=== PATIENT | female | born 1960 | race Caucasian/White ===

== ENCOUNTER 2017-10-01 10:14 | Inpatient (IN) | payer OTHER, BC ==
--- NOTE | 2017-10-01 10:30 | ER Document Report ---
ED Medical Screen (RME) - General Chief Complaint: Bloody Stools Stated Complaint: BLOOD IN STOOLS Time Seen by Provider: 10/01/17 10:22 TRAVEL OUTSIDE OF THE [place] IN LAST 30 DAYS: No - HPI Notes: 10/01/17 10:29 Lower abdominal pain bloody diarrhea ongoing for 2 days. The recent colonoscopy colonoscopy scheduled October 31 as routine no lightheadedness no dizziness no nausea no vomiting - Related Data Allergies/Adverse Reactions: No Known Allergies Allergy (Unverified 04/14/15 08:00) Past Medical History - Past Medical History Cardiac Medical History: Reports: Hx Hypertension Denies: Hx Coronary Artery Disease, Hx Heart Attack Pulmonary Medical History: Denies: Hx Asthma, Hx Bronchitis, Hx COPD, Hx Pneumonia Neurological Medical History: Denies: Hx Cerebrovascular Accident, Hx Seizures Musculoskeltal Medical History: Denies Hx Arthritis - Immunizations Hx Diphtheria, Pertussis, Tetanus Vaccination: Yes Review of Systems - Review of Systems Gastrointestinal: Other - Bloody diarrhea -: Yes All other systems reviewed and negative Physical Exam - Vital signs Vitals: Temp Pulse Resp BP Pulse Ox 98.5 F 65 16 156/91 H 98 10/01/17 10:18 10/01/17 10:18 10/01/17 10:18 10/01/17 10:18 10/01/17 10:18 - Respiratory Respiratory status: No respiratory distress Breath sounds: Normal Chest palpation: Normal Course - Vital Signs Vital signs: Temp Pulse Resp BP Pulse Ox 98.5 F 65 16 156/91 H 98 10/01/17 10:18 10/01/17 10:18 10/01/17 10:18 10/01/17 10:18 10/01/17 10:18 Doctor's Discharge - Discharge Referrals: VINICIO WOMACK [employer] [facility]ER [Primary Care Provider] - Follow up as needed
[2017-10-01] MEDS ORDERED: NORMAL SALINE 1000 ML 1,000 ML IV ONE (10:31)
[2017-10-01 10:59] LABS: ABSOLUTE EOSINOPHILS # (AUTO) 0.3 10^3/uL (0.0-0.6); ABSOLUTE LYMPHOCYTES (AUTO) 1.7 10^3/uL (0.5-4.7); ABSOLUTE MONOCYTES (AUTO) 0.7 10^3/uL (0.1-1.4); ABSOLUTE NEUT (AUTO) 7.2 10^3/uL (1.7-8.2); BASOPHILS % (AUTO) 0.3 % (0-2); EOSINOPHILS % (AUTO) 2.7 % (0-6); HEMATOCRIT 40.1 % (36.0-47.0); HEMOGLOBIN 13.8 g/dL (12.0-15.5); LYMPHOCYTES % (AUTO) 16.9 % (13-45); MEAN CORPUSCULAR HEMOGLOBIN 31.3 pg (27.0-33.4); MEAN CORPUSCULAR HGB CONC 34.3 g/dL (32.0-36.0); MEAN CORPUSCULAR VOLUME 91 fl (80-97); MONOCYTES % (AUTO) 6.7 % (3-13); PLATELET COUNT 325 10^3/uL (150-450); RED BLOOD COUNT 4.39 10^6/uL (3.72-5.28); RED CELL DISTRIBUTION WIDTH 12.2 % (11.5-14.0); SEGMENTED NEUTROPHILS % (AUTO) 73.4 % (42-78); TOTAL CELLS COUNTED % (AUTO) 100 %; WHITE BLOOD COUNT 9.8 10^3/uL (4.0-10.5)
[2017-10-01 11:08] LABS: INTERNATIONAL RATION (INR) 0.91; PROTHROMBIN TIME 12.8 SEC (11.4-15.4)
[2017-10-01 11:09] LABS: PARTIAL THROMBOPLASTIN TIME 27.4 SEC (23.5-35.8)
[2017-10-01 11:18] LABS: ALANINE AMINOTRANSFERASE 18 U/L (9-52); ALKALINE PHOSPHATASE 46 U/L (38-126); ANION GAP 11 (5-19); ASPARTATE AMINO TRANSFERASE 20 U/L (14-36); BILIRUBIN,DIRECT 0.2 mg/dL (0.0-0.4); BILIRUBIN,TOTAL 0.5 mg/dL (0.2-1.3); BLOOD UREA NITROGEN 7 mg/dL (7-20); CALCIUM 9.4 mg/dL (8.4-10.2); CARBON DIOXIDE 27 mmol/L (22-30); CHLORIDE 105 mmol/L (98-107); GLUCOSE 98 mg/dL (75-110); LIPASE 67.2 U/L (23-300); POTASSIUM 4.2 mmol/L (3.6-5.0); SODIUM 142.7 mmol/L (137-145); TOTAL PROTEIN 7.3 g/dL (6.3-8.2)
--- NOTE | 2017-10-01 11:43 | ER Document Report ---
ED General - General Chief Complaint: Bloody Stools Stated Complaint: BLOOD IN STOOLS Time Seen by Provider: 10/01/17 10:22 Notes: 57-year-old female presents emergency department with a chief complaint of bloody diarrhea. Patient states that she has been constipated for the past 2 weeks since starting weight watchers however on she ate some really rich food and started feeling gassy and developing lower abdominal pressure which then progressed to diarrhea. This continued as well as Tuesday and then this morning when she looked in the toilet she saw bloody diarrhea, states that it looked like. Blood where there was blood mixed with the stool. Denies tarry melanotic stool, states there is also blood on the tissue, denies it being bright red. Patient states she tried taking Kaopectate which did not make a difference. Had one episode of emesis last night and does not know if there was any blood. Also states that she had some sweats and chills right before having diarrhea but has not had any fevers. Last had a colonoscopy about 6 years ago where they remove one polyp, has a follow-up colonoscopy scheduled for October 31. Has never had rectal bleeding before. TRAVEL OUTSIDE OF THE [place] IN LAST 30 DAYS: No - Related Data Allergies/Adverse Reactions: No Known Allergies Allergy (Unverified 04/14/15 08:00) Past Medical History - General Information source: Patient - Social History Smoking Status: Never Smoker Chew tobacco use (# tins/day): No Frequency of alcohol use: Heavy - Admits daily drinking. Drug Abuse: None Family History: Reviewed & Not Pertinent Patient has suicidal ideation: No Patient has homicidal ideation: No - Past Medical History Cardiac Medical History: Reports: Hx Hypertension Denies: Hx Coronary Artery Disease, Hx Heart Attack Pulmonary Medical History: Denies: Hx Asthma, Hx Bronchitis, Hx COPD, Hx Pneumonia Neurological Medical History: Denies: Hx Cerebrovascular Accident, Hx Seizures Renal/ Medical History: Denies: Hx Peritoneal Dialysis Musculoskeletal Medical History: Denies Hx Arthritis Past Surgical History: Reports: Hx Gynecologic Surgery - D&C - Immunizations Hx Diphtheria, Pertussis, Tetanus Vaccination: Yes Hx Pneumococcal Vaccination: 12/12/13 Review of Systems - Review of Systems Constitutional: See HPI, Chills, Diaphoresis. denies: Fever EENT: No symptoms reported Gastrointestinal: See HPI -: Yes All other systems reviewed and negative Physical Exam - Vital signs Vitals: Temp Pulse Resp BP Pulse Ox 98.5 F 65 16 156/91 H 98 10/01/17 10:18 10/01/17 10:18 10/01/17 10:18 10/01/17 10:18 10/01/17 10:18 Interpretation: Hypertensive - Notes Notes: GENERAL: Alert, interacts well. No acute distress. HEAD: Normocephalic, atraumatic EYES: Pupils equal, round and reactive to light, extraocular movements intact. ENT: Oral mucosa moist, tongue midline. NECK: Full range of motion, supple, trachea midline. LUNGS: Clear to auscultation bilaterally, no wheezes, rales or rhonchi, no respiratory distress. HEART: Regular rate and rhythm, no murmurs, gallops, rubs. ABDOMEN: Soft, mild left lower quadrant and suprapubic tenderness to palpation, nondistended, bowel sounds present in all 4 quadrants. EXTREMITIES: Moves all 4 extremities spontaneously, no edema, radial and dorsalis pedis pulses 2/4 bilaterally. No cyanosis. NEUROLOGICAL: Alert and oriented x3, normal speech. RECTAL: Rectal examination does not reveal any fissures, there is one nonthrombosed external hemorrhoid, good sphincter tone, internal exam reveals dark red blood, no tenderness, no melena. PSYCH: Normal mood, normal affect. SKIN: Warm, Dry, normal turgor, no rashes or lesions noted. Course - Re-evaluation Re-evalutation: 10/01/17 13:20 CBC unremarkable, coags normal, CMP unremarkable, occult blood is positive, CT scan of the abdomen and pelvis shows long segment of bowel wall thickening and surrounding inflammatory change about the descending colon from the level of the splenic flexure to the descending sigmoid junction, some free fluid noted within the left pericolic gutter and the right pericolic gutter, the appendix is mildly enlarged with some subtle surrounding inflammatory change and there is a moderate amount of simple appearing fluid within the pelvis. Discussed clinical exam and findings with Dr. Crowe with the surgeon on-call who agrees to clinical examination points away from appendicitis and away from perforated intestines. Currently suspect diverticulitis, he recommends admission to medical service and he will consult. I discussed this with Dr. Saeed who agrees to admit the patient to her service, request telemetry care bed, agrees with initially treating for diverticulitis with Cipro and Flagyl but also recommends getting C. difficile studies. Discussed this with the patient who is agreeable to admission at this time. - Vital Signs Vital signs: Temp Pulse Resp BP Pulse Ox 98.5 F 65 16 156/91 H 98 10/01/17 10:18 10/01/17 10:18 10/01/17 10:18 10/01/17 10:18 10/01/17 10:18 - Laboratory Result Diagrams: 10/01/17 10:42 10/01/17 10:42 Discharge - Discharge Clinical Impression: Lower GI bleed, Colitis Condition: Fair Disposition: ADMITTED INPATIENT Admitting Provider: [facility] Unit Admitted: Telemetry Referrals: VINICIO WOMACK NP [Primary Care Provider] - Follow up as needed
--- NOTE | 2017-10-01 12:24 | RADIOLOGY REPORT (SQ) ---
EXAM DESCRIPTION: CT ABD/PELVIS WITH IV ONLY COMPLETED DATE/TIME: 10/01/2017 11:58 am REASON FOR STUDY: Bloody diarrhea lower abdominal pain COMPARISON: None. TECHNIQUE: CT scan of the abdomen and pelvis performed using helical scanning technique with dynamic intravenous contrast injection. No oral contrast. Images reviewed with lung, soft tissue, and bone windows. Reconstructed coronal and sagittal MPR images reviewed. Delayed images for evaluation of the urinary system also acquired. All images stored on PACS. All CT scanners at this facility use dose modulation, iterative reconstruction, and/or weight based d osing when appropriate to reduce radiation dose to as low as reasonably achievable (ALARA). [facility]: Dose Right [facility]: CareDose [facility]: Dose Right [facility]: Teradose 4D [facility]: DeciZium CONTRAST TYPE AND DOSE: contrast/concentration: Isovue 370.00 mg/ml; Total Contrast Delivered: 77.0 ml; Total Saline Delivered: 67.0 ml RENAL FUNCTION: GFR > 60. RADIATION DOSE: CT Rad equipment meets quality standard of care and radiation dose reduction techniq ues were employed. CTDIvol: 7.5 - 10.6 mGy. DLP: 894 mGy-cm.. LIMITATIONS: None. FINDINGS: LOWER CHEST: No significant findings. No nodules or infiltrates. LIVER: Normal size. No masses. No dilated ducts. SPLEEN: Normal size. No focal lesions. PANCREAS: No masses. No significant calcifications. No adjacent inflammation or peripancreatic fluid collections. Pancreatic duct not dilated. GALLBLADDER: No identified stones by CT criteria. No inflammatory changes to suggest cholecystitis. ADRENAL GLANDS: No significant masses or asymmetry. RIGHT KIDNEY AND URETER: No solid masses. No significant calcifications. No hydronephrosis or hyd roureter. LEFT KIDNEY AND URETER: No solid masses. There is a large cyst in the left kidney that measures 12 x 10 x 8 cm with some complexity and calcifications of the cyst septa. No hydronephrosis or hydrour eter. AORTA AND VESSELS: No aneurysm. No dissection. Renal arteries, SMA, celiac without stenosis. RETROPERITONEUM: No retroperitoneal adenopathy, hemorrhage or masses. BOWEL AND PERITONEAL CAVITY: There is long segment bowel wall thickening and surrounding inflammatory change about the descending colon from the level of the splenic flexure to the descending sigmoid ju nction. There is some free fluid noted within the left pericolic gutter as well as the right pericol ic gutter. Scattered diverticula are seen throughout the colon. APPENDIX: The appendix is mildly enlarged with some subtle surrounding inflammatory change. PELVIS: There is a moderate amount of simple appearing free fluid within the pelvis. ABDOMINAL WALL: No masses. No hernias. BONES: No significant or acute findings. OTHER: No other significant finding. IMPRESSION: 1. Given the long segment involvement of the left colon, this is most consistent with a colitis, infectious or inflammatory. While ischemic colitis is a possibility, it is not favored. 2. Mild enlargement of the appendix with some subtle surrounding inflammatory change. This may be s econdary to the intra-abdominal inflammatory change, however a developing acute appendicitis is not e ntirely excluded. 3. Large, complicated left renal cyst. No prior exams available for comparison. If this is a new f inding, urology consultation is recommended for further evaluation given the size and complexity of t he cyst. TECHNICAL DOCUMENTATION: JOB ID: [id number] Quality ID # [id number]: Final reports with documentation of one or more dose reduction techniques (e.g., Au tomated exposure control, adjustment of the mA and/or kV according to patient size, use of iterative reconstruction technique) 2010 [employer]- All Rights Reserved Reading location - IP/workstation name: [email or web address]
[2017-10-01] MEDS ORDERED: CIPROFLOXACIN 400 MG/D5W RTU 400 MG/200 ML RTUPB IV ONE (12:59)
[2017-10-01] MEDS ORDERED: METRONIDAZOLE 500 MG/NS RTU 500 MG/100 ML RTUPB IV SCH (13:30)
[2017-10-01] MEDS ORDERED: CHOLECALCIFEROL (D3) 1,000 UNIT TABLET PO SCH (13:30)
[2017-10-01] MEDS: METRONIDAZOLE 500 MG/NS RTU 500 MG/100 ML RTUPB IV SCH ×2 (13:57→21:23)
[2017-10-01] MEDS ORDERED: METRONIDAZOLE 500 MG/NS RTU 500 MG/100 ML RTUPB IV ONE (14:00)
[2017-10-01] MEDS ORDERED: LORAZEPAM 0.5 MG TABLET PO PRN (15:09)
--- NOTE | 2017-10-01 15:09 | PDOC H&P ---
History of Present Illness Admission Date/PCP: 10/01/17 13:58 VINICIO WOMACK NP Patient complains of: abd bloating and diarrhea with bright red blood per rectum History of Present Illness: GILMA CARABALLO is a 57 year old woman with a past medical history significant for colon polyp, acoustic neuroma, hypertension and hypothyroidism reports to the ER after experiencing abdominal symptoms. About 4 weeks ago she started on weight watchers diet plan and since that time she has been feeling a little bit more constipated than usual. She reports that 2 days ago she was celebrating her anniversary with her and they went out for dinner. She ate a large rich meal with scallops, shrimp and other seafood, nothing raw. She also ate coleslaw that day. Within an hour after eating the meal she experienced significant abdominal bloating. Shortly thereafter she had a large bout of emesis and throughout her entire meal. Diarrhea started at the same time. Tuesday morning she continued with diarrhea, no further emesis. This morning diarrhea continued and she notes that it was brown mucousy and soft with bright red blood. She does not know when the bleeding started. She took some Kaopectate, ate a brat diet and took Pedialyte. After some Internet research on blood in the stool she decided to come to the ER. She continues to have loose stools. No dysuria. No fevers or chills. She has left lower quadrant aching. No severe abdominal pain. No rash. No epigastric pain. No hematemesis or melena. CT can of the abdomen pelvis shows left colon inflammation consistent with colitis, also complex left renal cyst for which urology workup is recommended. Is being admitted to the hospitalist service for treatment of colitis, likely infectious though inflammatory and ischemic not completely ruled out. sHe is hemodynamically stable. 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 Endocrine Medical History: Reports: Hypothyroidism Renal/ Medical History: Denies: Chronic Kidney Disease Malignancy Medical History: Reports: None GI Medical History: Reports: Other - Diverticulosis Musculoskeltal Medical History: Reports: Arthritis - Osteoarthritis Skin Medical History: Denies: Eczema, Psoriasis Psychiatric Medical History: Reports: Other - Mild situational anxiety Denies: Alcohol Dependency, Substance Abuse, Tobacco Dependency Traumatic Medical History: Reports: None Hematology: Denies: Anemia, Bleeding Tendencies Infectious Medical History: Denies: Clostridium Difficile Past Surgical History Past Surgical History: Reports: Other - Craniotomy for acoustic neuroma Social History Information Source: Patient Lives with: Family Smoking Status: Former Smoker - Smoked in the 80s, never heavy Last Time Smoked: 1980s Amount of Alcoholic Beverages Per Day: 1 Hx Recreational Drug Use: No Drugs: None Hx Prescription Drug Abuse: No Past Social History Note: 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 She and her are from the [facility]. She has several healthy children. - Advance Directive Resuscitation Status: Full Code Surrogate healthcare decision maker:: Gurvinder Caraballo. Phone number [phone] Family History Parental Family History Reviewed: Yes - Father of an SC at 64, first SC at 45. mother of old age. Children Family History Reviewed: Yes - The children Sibling(s) Family History Reviewed.: Yes Medication/Allergy Home Medications: Levothyroxine Sodium 75 mcg PO Q6AM 04/14/15 Lisinopril 10 mg PO DAILY 04/14/15 Ergocalciferol (Vitamin D2) [Drisdol 50,000 Unit (1.25MG) Capsule] 50,000 unit PO .QWEEKLY 10/01/17 Estrogens,Conj/Bazedoxifene [Duavee 0.45-20 mg Tablet] 1 each PO DAILY 10/01/17 Allergies/Adverse Reactions: No Known Allergies Allergy (Unverified 04/14/15 08:00) Review of Systems Constitutional: PRESENT: anorexia, chills. ABSENT: fever(s), headache(s), weakness Eyes: ABSENT: visual disturbances Ears: PRESENT: other - Right ear deafness Nose, Mouth, and Throat: ABSENT: headache(s), mouth pain, sore throat Cardiovascular: ABSENT: chest pain, dyspnea on exertion, edema, palpitations Respiratory: ABSENT: cough, dyspnea, hemoptysis, sputum Gastrointestinal: PRESENT: abdominal pain, bloating, diarrhea, hematochezia, nausea, vomiting. ABSENT: coffee ground emesis, constipation, dysphagia, heartburn, hematemesis, melena Genitourinary: ABSENT: difficulty urinating, dysuria Musculoskeletal: ABSENT: back pain, joint swelling, muscle weakness Integumentary: ABSENT: lesions, wounds Neurological: PRESENT: other - left facial paralysis chronic. ABSENT: dizziness , lack of coordination, memory loss, numbness, paresthesias, weakness Psychiatric: PRESENT: anxiety. ABSENT: depression Endocrine: PRESENT: other - menopausal. ABSENT: cold intolerance, heat intolerance Hematologic/Lymphatic: ABSENT: easy bleeding, easy bruising Allergic/Immunologic: ABSENT: seasonal rhinorrhea Physical Exam Vital Signs: Temp Pulse Resp BP Pulse Ox 98.5 F 65 16 156/91 H 98 10/01/17 10:18 10/01/17 10:18 10/01/17 10:18 10/01/17 10:18 10/01/17 10:18 General appearance: PRESENT: no acute distress, cooperative, well-developed, well-nourished Head exam: PRESENT: atraumatic, normocephalic Eye exam: PRESENT: EOMI. ABSENT: conjunctival injection, periorbital swelling, scleral icterus Ear exam: PRESENT: normal external ear exam. ABSENT: bleeding Mouth exam: PRESENT: moist, neck supple, tongue midline Neck exam: ABSENT: lymphadenopathy, tenderness Respiratory exam: PRESENT: clear to auscultation faye, crackles, unlabored. ABSENT: accessory muscle use, chest wall tenderness, rales, rhonchi, wheezes Cardiovascular exam: PRESENT: RRR. ABSENT: diastolic murmur, systolic murmur Pulses: PRESENT: normal radial pulses, normal dorsalis pedis pul GI/Abdominal exam: PRESENT: soft, tenderness - Left lower quadrant tenderness to palpation without rebound or guarding. ABSENT: ascites, distended, firm, guarding, mass, normal bowel sounds Rectal exam: PRESENT: deferred Gentrourinary exam: ABSENT: indwelling catheter Extremities exam: ABSENT: clubbing, pedal edema Musculoskeletal exam: PRESENT: ambulatory, normal inspection Neurological exam: PRESENT: alert, awake, oriented to person, oriented to place , oriented to situation, CN II-XII grossly intact Psychiatric exam: PRESENT: anxious, appropriate affect Skin exam: PRESENT: dry, intact, warm Results Impressions: Abdomen/Pelvis CT 07/21/18 10:30 IMPRESSION: 1. Given the long segment involvement of the left colon, this is most consistent with a colitis, infectious or inflammatory. While ischemic colitis is a possibility, it is not favored. 2. Mild enlargement of the appendix with some subtle surrounding inflammatory change. This may be secondary to the intra-abdominal inflammatory change, however a developing acute appendicitis is not entirely excluded. 3. Large, complicated left renal cyst. No prior exams available for comparison. If this is a new finding, urology consultation is recommended for further evaluation given the size and complexity of the cyst. Assessment & Plan - Diagnosis (1) Colitis Is this a current diagnosis for this admission?: Yes Plan: Patient came in with blood in her stool, she has been having diarrhea for several days after eating seafood and coleslaw. She also has diverticulosis seen on CT scan. The differential is ischemic versus inflammatory versus infectious colitis. Ischemic less likely, I think most likely infectious. She will be treated at this point with Cipro 400 mg IV every 12 hours and Flagyl 500 mg every 8 hours. Ice chips only for bowel rest. Maintenance IV fluids with normal saline. Stool culture, C. difficile, fecal occult blood tests all pending. Fecal white blood cells pending as well. Is hemodynamically stable. (2) Nausea vomiting and diarrhea Is this a current diagnosis for this admission?: Yes Plan: Patient reports that for about 4 weeks she has been on weight watchers. She was feeling somewhat constipated. 2 days ago while on her anniversary dinner she had a very rich meal which included seafood, nothing raw, this included oysters and shrimp and scallops. Very quickly after eating within an hour she felt bloated and then diarrhea started. She had one episode of emesis which throughout her meal. After that she had diarrhea for about 2 days and she finally noticed blood in the stool and so came into the ER. She now is found to have colitis. She is being treated for infectious colitis and multiple studies are pending. Nausea and vomiting have resolved. She will be hydrated with IV fluids while she is on bowel rest and still having some diarrhea. (3) Hypothyroidism Is this a current diagnosis for this admission?: Yes Plan: We will start her Synthroid (4) Hypertension Is this a current diagnosis for this admission?: Yes Plan: As long as patient is not hypotensive she will take her regular home antihypertensives. (5) Colon polyp Is this a current diagnosis for this admission?: Yes Plan: Patient had screening colonoscopy 5 years ago and colon polyp was removed. She is due for repeat colonoscopy within the next week or so. Of note she is also up-to-date on her mammogram. (6) Anxiety Is this a current diagnosis for this admission?: Yes Plan: Patient is on BuSpar at home. We will restart this. She is feeling anxious about this medical problem and her admission, she also has some insomnia. I will write for Ativan 0.5 mg p.o. every 8 hours as needed anxiety or in some area. (7) DVT prophylaxis Is this a current diagnosis for this admission?: Yes Plan: Contraindicated secondary to lower GI bleed. SCDs have been ordered. Ambulation with assistance will be encouraged. - Time Time Spent: 50 to 70 Minutes Medications reviewed and adjusted accordingly: Yes Anticipated discharge: Home - Inpatient Certification Based on my medical assessment, after consideration of the patient's comorbidities, presenting symptoms, or acuity I expect that the services needed warrant INPATIENT care.: Yes I certify that my determination is in accordance with my understanding of Medicare's requirements for reasonable and necessary INPATIENT services [42 CFR 412.3e].: Yes Medical Necessity: Need For IV Fluids, Need for IV Antibiotics, Risk of Complication if Not Cared For in Hospital
[2017-10-01 15:59] LABS: INTERNATIONAL RATION (INR) 0.95; PROTHROMBIN TIME 13.2 SEC (11.4-15.4)
[2017-10-01 17:07] LABS: URINE AMPHETAMINES SCREEN NEGATIVE; URINE BARBITURATES SCREEN NEGATIVE; URINE BENZODIAZEPINES SCREEN NEGATIVE; URINE COCAINE SCREEN NEGATIVE; URINE MARIJUANA (THC) SCREEN NEGATIVE; URINE METHADONE SCREEN NEGATIVE; URINE PHENCYCLIDINE SCREEN NEGATIVE
[2017-10-01] MEDS ORDERED: IBUPROFEN 600 MG TABLET PO PRN (18:21)
[2017-10-01] MEDS: CIPROFLOXACIN 400 MG/D5W RTU 400 MG/200 ML RTUPB IV SCH (21:23)
[2017-10-01] MEDS: ACETAMINOPHEN 325 MG TABLET PO PRN (23:32)
[2017-10-02] MEDS: METRONIDAZOLE 500 MG/NS RTU 500 MG/100 ML RTUPB IV SCH ×3 (05:17→21:58)
[2017-10-02] MEDS: ACETAMINOPHEN 325 MG TABLET PO PRN ×3 (05:18→21:58)
[2017-10-02 06:03] LABS: HEMATOCRIT 32.8 % (36.0-47.0); MEAN CORPUSCULAR HEMOGLOBIN 31.6 pg (27.0-33.4); MEAN CORPUSCULAR HGB CONC 34.7 g/dL (32.0-36.0); MEAN CORPUSCULAR VOLUME 91 fl (80-97); PLATELET COUNT 233 10^3/uL (150-450); RED CELL DISTRIBUTION WIDTH 12.3 % (11.5-14.0); WHITE BLOOD COUNT 8.2 10^3/uL (4.0-10.5)
[2017-10-02 06:11] LABS: ANION GAP 10 (5-19); BLOOD UREA NITROGEN 8 mg/dL (7-20); CALCIUM 8.4 mg/dL (8.4-10.2); CARBON DIOXIDE 21 mmol/L (22-30); CHLORIDE 110 mmol/L (98-107); GLUCOSE 74 mg/dL (75-110); POTASSIUM 3.7 mmol/L (3.6-5.0); SODIUM 141.1 mmol/L (137-145)
[2017-10-02 06:40] LABS: HEMOGLOBIN 11.4 g/dL (12.0-15.5)
[2017-10-02] MEDS: LEVOTHYROXINE SODIUM 0.075 MG TABLET PO SCH (09:48)
[2017-10-02] MEDS: CIPROFLOXACIN 400 MG/D5W RTU 400 MG/200 ML RTUPB IV SCH ×2 (09:48→21:58)
[2017-10-02] MEDS: LACTOBACILLUS ACIDOPHILUS 250 MG TAB PO SCH (09:48)
[2017-10-02] MEDS: LISINOPRIL 10 MG TABLET PO SCH (09:49)
[2017-10-02] MEDS ORDERED: LACTOBACILLUS COMBINATION NO 4 PO SCH (10:00)
[2017-10-02] MEDS ORDERED: [UNRECOGNIZED DRUG - OTHER] PO SCH (10:00)
[2017-10-02] MEDS: NORMAL SALINE 1000 ML 1,000 ML IV PRN ×2 (13:24→21:58)
--- NOTE | 2017-10-02 15:41 | PDOC PROGRESS REPORT ---
Subjective Progress Note for:: 10/02/17 Subjective:: Patient had a large bowel movement that had brown mucousy soft stools with lots of blood in it last night. Since then no further stools. No chest pain or difficulty breathing. No real abdominal discomfort at this point. No dysuria. She is doing fine with ice chips. Ice chips do not abdominal pain. She is feeling some anxiety. She states that the half milligram of Ativan tab was not strong enough to have an effect. Reason For Visit: COLITIS AND LOWER GI BLEED Physical Exam Vital Signs: Temp Pulse Resp BP Pulse Ox 98.2 F 57 L 16 127/72 H 99 10/02/17 12:00 10/02/17 14:00 10/02/17 12:00 10/02/17 12:00 10/02/17 12:00 Intake & Output 10/01/17 10/02/17 10/03/17 06:59 06:59 06:59 Intake Total 1750 Balance 1750 Weight 73.8 kg General appearance: PRESENT: no acute distress, cooperative, well-developed, well-nourished Eye exam: ABSENT: conjunctival injection, scleral icterus Ear exam: PRESENT: normal external ear exam Mouth exam: PRESENT: moist, tongue midline Respiratory exam: PRESENT: clear to auscultation faye, unlabored. ABSENT: rales , rhonchi, wheezes Cardiovascular exam: PRESENT: RRR. ABSENT: diastolic murmur, systolic murmur Pulses: PRESENT: normal radial pulses GI/Abdominal exam: PRESENT: normal bowel sounds, soft. ABSENT: firm, guarding, tenderness Rectal exam: PRESENT: bloody stool Gentrourinary exam: ABSENT: indwelling catheter Extremities exam: ABSENT: pedal edema, +1 edema Musculoskeletal exam: PRESENT: normal inspection Neurological exam: PRESENT: alert, awake, oriented to person, oriented to place , oriented to situation, CN II-XII grossly intact Psychiatric exam: PRESENT: appropriate affect. ABSENT: anxious Skin exam: PRESENT: dry, intact, warm Results Laboratory Results: 10/02/17 04:33 10/02/17 04:33 10/01/17 10/02/17 10/02/17 16:10 04:33 04:33 WBC 8.2 RBC 3.60 L Hgb 11.4 L D Hct 32.8 L MCV 91 MCH 31.6 MCHC 34.7 RDW 12.3 Plt Count 233 Sodium 141.1 Potassium 3.7 Chloride 110 H Carbon Dioxide 21 L Anion Gap 10 BUN 8 Creatinine 0.64 Est GFR ( Amer) > 60 Est GFR (Non-Af Amer) > 60 Glucose 74 L Calcium 8.4 Stool for White Cells NO WBCs SEEN Impressions: Abdomen/Pelvis CT 10/01/17 10:30 IMPRESSION: 1. Given the long segment involvement of the left colon, this is most consistent with a colitis, infectious or inflammatory. While ischemic colitis is a possibility, it is not favored. 2. Mild enlargement of the appendix with some subtle surrounding inflammatory change. This may be secondary to the intra-abdominal inflammatory change, however a developing acute appendicitis is not entirely excluded. 3. Large, complicated left renal cyst. No prior exams available for comparison. If this is a new finding, urology consultation is recommended for further evaluation given the size and complexity of the cyst. Assessment & Plan - Diagnosis (1) Colitis Is this a current diagnosis for this admission?: Yes Plan: Infectious versus ischemic versus inflammatory, infectious favored. Will continue IV Cipro and Flagyl and continue bowel rest with small amounts of ice chips. Pain is improving. Stool culture pending. C. difficile negative. Fecal occult blood test positive. Fecal white blood cells pending. Patient did drop her hemoglobin a few points overnight. No further bloody stools after last night but will follow her hemoglobin again today. 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 (2) Nausea vomiting and diarrhea Is this a current diagnosis for this admission?: Yes Plan: Nausea vomiting resolved. Bloody diarrhea last night. All likely related to whatever is causing the colitis. Will monitor. (3) Hypothyroidism Is this a current diagnosis for this admission?: Yes Plan: Continue her Synthroid. Seems stable clinically from this perspective. (4) Hypertension Is this a current diagnosis for this admission?: Yes Plan: Patient's lisinopril restarted. sHe is normotensive today. We will continue to monitor blood pressure. (5) Colon polyp Is this a current diagnosis for this admission?: Yes Plan: Several years ago. Repeat colonoscopy pending. Please see colitis above. (6) Anxiety Is this a current diagnosis for this admission?: Yes Plan: Patient has baseline anxiety. She is more anxious being in the hospital. Half milligram of Ativan was not effective. I have increased her dose to 1 mg p.o. every 8 hours as needed anxiety. Will monitor progress. (7) DVT prophylaxis Is this a current diagnosis for this admission?: Yes Plan: SCDs only secondary to bleeding. - Time Time Spent with patient: 25-34 minutes Medications reviewed and adjusted accordingly: Yes - Inpatient Certification Based on my medical assessment, after consideration of the patient's comorbidities, presenting symptoms, or acuity I expect that the services needed warrant INPATIENT care.: Yes I certify that my determination is in accordance with my understanding of Medicare's requirements for reasonable and necessary INPATIENT services [42 CFR 412.3e].: Yes Medical Necessity: Need Close Monitoring Due to Risk of Patient Decompensation, Need For IV Fluids, Risk of Complication if Not Cared For in Hospital
[2017-10-02 17:04] LABS: HEMATOCRIT 34.3 % (36.0-47.0); HEMOGLOBIN 11.8 g/dL (12.0-15.5); MEAN CORPUSCULAR HEMOGLOBIN 31.2 pg (27.0-33.4); MEAN CORPUSCULAR HGB CONC 34.3 g/dL (32.0-36.0); MEAN CORPUSCULAR VOLUME 91 fl (80-97); PLATELET COUNT 262 10^3/uL (150-450); RED BLOOD COUNT 3.78 10^6/uL (3.72-5.28); RED CELL DISTRIBUTION WIDTH 12.2 % (11.5-14.0); WHITE BLOOD COUNT 8.8 10^3/uL (4.0-10.5)
[2017-10-02] MEDS: LORAZEPAM 0.5 MG TABLET PO PRN (17:48)
[2017-10-03] MEDS: METRONIDAZOLE 500 MG/NS RTU 500 MG/100 ML RTUPB IV SCH ×3 (05:06→21:13)
[2017-10-03] MEDS: ACETAMINOPHEN 325 MG TABLET PO PRN ×3 (05:11→22:47)
[2017-10-03 06:40] LABS: HEMATOCRIT 34.3 % (36.0-47.0); HEMOGLOBIN 11.8 g/dL (12.0-15.5); MEAN CORPUSCULAR HEMOGLOBIN 31.5 pg (27.0-33.4); MEAN CORPUSCULAR HGB CONC 34.4 g/dL (32.0-36.0); MEAN CORPUSCULAR VOLUME 92 fl (80-97); PLATELET COUNT 266 10^3/uL (150-450); RED BLOOD COUNT 3.74 10^6/uL (3.72-5.28); WHITE BLOOD COUNT 7.9 10^3/uL (4.0-10.5)
[2017-10-03 07:15] LABS: ANION GAP 15 (5-19); BLOOD UREA NITROGEN 8 mg/dL (7-20); CALCIUM 8.4 mg/dL (8.4-10.2); CARBON DIOXIDE 16 mmol/L (22-30); CHLORIDE 110 mmol/L (98-107); GLUCOSE 47 mg/dL (75-110); POTASSIUM 3.9 mmol/L (3.6-5.0); SODIUM 140.6 mmol/L (137-145)
[2017-10-03] MEDS: LACTOBACILLUS ACIDOPHILUS 250 MG TAB PO SCH (09:30)
[2017-10-03] MEDS: LEVOTHYROXINE SODIUM 0.075 MG TABLET PO SCH (09:30)
[2017-10-03] MEDS: LISINOPRIL 10 MG TABLET PO SCH (09:30)
[2017-10-03] MEDS: CIPROFLOXACIN 400 MG/D5W RTU 400 MG/200 ML RTUPB IV SCH ×2 (09:31→22:47)
[2017-10-03] MEDS: NORMAL SALINE 1000 ML 1,000 ML IV PRN ×2 (09:38→21:13)
--- NOTE | 2017-10-03 19:14 | PDOC PROGRESS REPORT ---
Subjective Progress Note for:: 10/03/17 Subjective:: Still with abdominal pain, but improved. Tolerating clear liquid diet. Would like trial of advancing diet. No further rectal bleeding at this time. No chest pain or shortness of breath or palpitations, denies dizziness, no nausea vomiting. Reason For Visit: COLITIS AND LOWER GI BLEED Physical Exam Vital Signs: Temp Pulse Resp BP Pulse Ox 98.2 F 104 H 16 127/68 H 97 10/03/17 15:13 10/03/17 15:13 10/03/17 15:13 10/03/17 15:13 10/03/17 15:13 Intake & Output 10/02/17 10/03/17 10/04/17 06:59 06:59 06:59 Intake Total 1750 3525 593 Output Total 2 Balance 1750 3523 593 Weight 73.8 kg 76.249 kg General appearance: PRESENT: no acute distress, cooperative, well-developed, well-nourished Eye exam: ABSENT: conjunctival injection, scleral icterus Ear exam: PRESENT: normal external ear exam Mouth exam: PRESENT: moist, tongue midline Respiratory exam: PRESENT: clear to auscultation faye, unlabored. ABSENT: rales , rhonchi, wheezes Cardiovascular exam: PRESENT: RRR. ABSENT: diastolic murmur, systolic murmur Pulses: PRESENT: normal radial pulses GI/Abdominal exam: PRESENT: normal bowel sounds, soft, mild to moderate left lower quadrant tenderness. ABSENT: firm, guarding, tenderness Rectal exam: PRESENT: bloody stool Gentrourinary exam: ABSENT: indwelling catheter Extremities exam: ABSENT: pedal edema, +1 edema Musculoskeletal exam: PRESENT: normal inspection Neurological exam: PRESENT: alert, awake, oriented to person, oriented to place , oriented to situation, CN II-XII grossly intact Psychiatric exam: PRESENT: appropriate affect. ABSENT: anxious Skin exam: PRESENT: dry, intact, warm Results Laboratory Results: 10/03/17 05:53 10/03/17 05:53 10/03/17 10/03/17 05:53 05:53 WBC 7.9 RBC 3.74 Hgb 11.8 L Hct 34.3 L MCV 92 MCH 31.5 MCHC 34.4 RDW 12.0 Plt Count 266 Sodium 140.6 Potassium 3.9 Chloride 110 H Carbon Dioxide 16 L Anion Gap 15 BUN 8 Creatinine 0.64 Est GFR ( Amer) > 60 Est GFR (Non-Af Amer) > 60 Glucose 47 L Calcium 8.4 Impressions: Abdomen/Pelvis CT 10/01/17 10:30 IMPRESSION: 1. Given the long segment involvement of the left colon, this is most consistent with a colitis, infectious or inflammatory. While ischemic colitis is a possibility, it is not favored. 2. Mild enlargement of the appendix with some subtle surrounding inflammatory change. This may be secondary to the intra-abdominal inflammatory change, however a developing acute appendicitis is not entirely excluded. 3. Large, complicated left renal cyst. No prior exams available for comparison. If this is a new finding, urology consultation is recommended for further evaluation given the size and complexity of the cyst. Assessment & Plan - Plan Summary Plan Summary: (1) Colitis Is this a current diagnosis for this admission?: Yes Plan: Infectious versus ischemic versus inflammatory; infectious favored. Will continue IV Cipro and Flagyl for now. Pain is improving. Stool culture pending. C. difficile negative. Fecal occult blood test positive. She had colonoscopy about 7 years ago. Will need GI follow-up. Trial of advancing diet. (2) Nausea vomiting and diarrhea Is this a current diagnosis for this admission?: Yes Plan: Nausea and vomiting resolved. No more bloody diarrhea at this time. Will monitor. (3) Hypothyroidism Is this a current diagnosis for this admission?: Yes Plan: Continue her Synthroid. Seems stable clinically from this perspective. (4) Hypertension Is this a current diagnosis for this admission?: Yes Plan: BP stable. We will continue to monitor blood pressure. (5) Colon polyp Is this a current diagnosis for this admission?: Yes Plan: Several years ago. 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 Please see colitis above. (6) Anxiety Is this a current diagnosis for this admission?: Yes Plan: Patient has baseline anxiety. She is more anxious being in the hospital. Continue as needed Ativan. Will monitor progress. (7) DVT prophylaxis Is this a current diagnosis for this admission?: Yes Plan: SCDs only secondary to bleeding. (8) Large Complicated left renal cyst Is this a current diagnosis for this admission?: Yes Plan: Urology consult Dr. Kadeem mosqueda--he will see patient in a.m.
[2017-10-03] MEDS: LORAZEPAM 0.5 MG TABLET PO PRN (21:13)
[2017-10-04 05:26] LABS: HEMATOCRIT 32.3 % (36.0-47.0); HEMOGLOBIN 11.5 g/dL (12.0-15.5); MEAN CORPUSCULAR HEMOGLOBIN 31.8 pg (27.0-33.4); MEAN CORPUSCULAR HGB CONC 35.4 g/dL (32.0-36.0); MEAN CORPUSCULAR VOLUME 90 fl (80-97); PLATELET COUNT 273 10^3/uL (150-450); RED CELL DISTRIBUTION WIDTH 12.2 % (11.5-14.0)
[2017-10-04] MEDS: METRONIDAZOLE 500 MG/NS RTU 500 MG/100 ML RTUPB IV SCH ×3 (05:26→21:09)
[2017-10-04 05:49] LABS: ANION GAP 9 (5-19); BLOOD UREA NITROGEN 8 mg/dL (7-20); CALCIUM 8.5 mg/dL (8.4-10.2); CARBON DIOXIDE 21 mmol/L (22-30); CHLORIDE 112 mmol/L (98-107); GLUCOSE 92 mg/dL (75-110); POTASSIUM 3.8 mmol/L (3.6-5.0); SODIUM 141.6 mmol/L (137-145)
[2017-10-04] MEDS: LACTOBACILLUS ACIDOPHILUS 250 MG TAB PO SCH (09:00)
[2017-10-04] MEDS: LEVOTHYROXINE SODIUM 0.075 MG TABLET PO SCH (09:00)
[2017-10-04] MEDS: LISINOPRIL 10 MG TABLET PO SCH (09:01)
[2017-10-04] MEDS: CIPROFLOXACIN 400 MG/D5W RTU 400 MG/200 ML RTUPB IV SCH ×2 (09:02→21:09)
[2017-10-04] MEDS: LORAZEPAM 0.5 MG TABLET PO PRN ×2 (10:28→21:10)
[2017-10-04] MEDS: ACETAMINOPHEN 325 MG TABLET PO PRN ×2 (10:28→21:11)
--- NOTE | 2017-10-04 11:21 | PDOC CONSULTATION ---
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 Neurological Medical History: Denies: Seizures Endocrine Medical History: Reports: Hypothyroidism Renal/ Medical History: Denies: Chronic Kidney Disease Malignancy Medical History: Reports: None GI Medical History: Reports: Other - Diverticulosis Musculoskeltal Medical History: Reports: Arthritis - Osteoarthritis Skin Medical History: Denies: Eczema, Psoriasis Psychiatric Medical History: Reports: Other - Mild situational anxiety Denies: Alcohol Dependency, Substance Abuse, Tobacco Dependency Traumatic Medical History: Reports: None Hematology: Reports: Other - 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 Denies: Anemia, Bleeding Tendencies Infectious Medical History: Denies: Clostridium Difficile Past Surgical History Past Surgical History: Reports: Other - Craniotomy for acoustic neuroma Social History Lives with: Family Smoking Status: Never Smoker Last Time Smoked: Frequency of Alcohol Use: Social Hx Recreational Drug Use: No Drugs: None Hx Prescription Drug Abuse: No - Advance Directive Resuscitation Status: Full Code Family History Family History: Reviewed & Not Pertinent Parental Family History Reviewed: No Children Family History Reviewed: No Sibling(s) Family History Reviewed.: No Medication/Allergy Home Medications: Levothyroxine Sodium 75 mcg PO Q6AM 04/14/15 Lisinopril 10 mg PO DAILY 04/14/15 Ergocalciferol (Vitamin D2) [Drisdol 50,000 Unit (1.25MG) Capsule] 50,000 unit PO SA@1000 10/01/17 Estrogens,Conj/Bazedoxifene [Duavee 0.45-20 mg Tablet] 1 each PO DAILY 10/01/17 Allergies/Adverse Reactions: No Known Allergies Allergy (Unverified 04/14/15 08:00) Physical Exam Vital Signs: Temp Pulse Resp BP Pulse Ox 98.1 F 55 L 17 146/75 H 97 10/04/17 08:05 10/04/17 08:05 10/04/17 08:05 10/04/17 08:05 10/04/17 08:05 Intake & Output 10/03/17 10/04/17 10/05/17 06:59 06:59 06:59 Intake Total 3525 3698 Output Total 2 Balance 3523 3698 Weight 76.249 kg 74.2 kg Results Laboratory Results: 10/04/17 04:22 10/04/17 04:22 10/04/17 10/04/17 04:22 04:22 WBC 6.0 RBC 3.60 L Hgb 11.5 L Hct 32.3 L MCV 90 MCH 31.8 MCHC 35.4 RDW 12.2 Plt Count 273 Sodium 141.6 Potassium 3.8 Chloride 112 H Carbon Dioxide 21 L Anion Gap 9 BUN 8 Creatinine 0.64 Est GFR ( Amer) > 60 Est GFR (Non-Af Amer) > 60 Glucose 92 Calcium 8.5 10/01/17 16:10 Stool - Stool - Final 10/01/17 16:10 Stool - Stool Stool Culture - Final NO SALMONELLA, SHIGELLA, CAMPYLOBACTER, OR E.COLI 0157 RECOVERED. NEGATIVE FOR SHIGA TOXINS 1&2. Impressions: Abdomen/Pelvis CT 10/01/17 10:30 IMPRESSION: 1. Given the long segment involvement of the left colon, this is most consistent with a colitis, infectious or inflammatory. While ischemic colitis is a possibility, it is not favored. 2. Mild enlargement of the appendix with some subtle surrounding inflammatory change. This may be secondary to the intra-abdominal inflammatory change, however a developing acute appendicitis is not entirely excluded. 3. Large, complicated left renal cyst. No prior exams available for comparison. If this is a new finding, urology consultation is recommended for further evaluation given the size and complexity of the cyst. CT was reviewed with the radiologist and left renal cyst calcified needs further evaluation by MRI Assessment & Plan - Plan Summary Plan Summary: MRI is requested
--- NOTE | 2017-10-04 19:42 | PDOC PROGRESS REPORT ---
Subjective Progress Note for:: 10/04/17 Subjective:: No adverse events overnight. No new complaints. Her belly is been feeling better. She had some regular food this morning and she has been tolerating it well. She has been ambulating independently in the room performing her ADLs. Reason For Visit: COLITIS AND LOWER GI BLEED Physical Exam Vital Signs: Temp Pulse Resp BP Pulse Ox 98.5 F 65 16 144/83 H 99 10/04/17 17:06 10/04/17 17:06 10/04/17 17:06 10/04/17 17:06 10/04/17 17:06 Intake & Output 10/03/17 10/04/17 10/05/17 06:59 06:59 06:59 Intake Total 3525 3798 1086 Output Total 2 Balance 3523 3798 1086 Weight 76.249 kg 74.2 kg General appearance: PRESENT: no acute distress, cooperative, well-developed, well-nourished Respiratory exam: PRESENT: clear to auscultation faye, unlabored. ABSENT: accessory muscle use, rales, rhonchi, tachypnea, wheezes Cardiovascular exam: PRESENT: RRR. ABSENT: systolic murmur GI/Abdominal exam: PRESENT: normal bowel sounds, soft. ABSENT: guarding, rebound, tenderness Extremities exam: PRESENT: full ROM. ABSENT: pedal edema Musculoskeletal exam: PRESENT: ambulatory, full ROM, normal inspection. ABSENT : deformity Neurological exam: PRESENT: alert, awake, oriented to person, oriented to place , oriented to time, normal gait Psychiatric exam: PRESENT: appropriate affect, normal mood Skin exam: PRESENT: dry, warm Results Laboratory Results: 10/04/17 04:22 10/04/17 04:22 10/04/17 10/04/17 04:22 04:22 WBC 6.0 RBC 3.60 L Hgb 11.5 L Hct 32.3 L MCV 90 MCH 31.8 MCHC 35.4 RDW 12.2 Plt Count 273 Sodium 141.6 Potassium 3.8 Chloride 112 H Carbon Dioxide 21 L Anion Gap 9 BUN 8 Creatinine 0.64 Est GFR ( Amer) > 60 Est GFR (Non-Af Amer) > 60 Glucose 92 Calcium 8.5 10/01/17 16:10 Stool - Stool - Final 10/01/17 16:10 Stool - Stool Stool Culture - Final NO SALMONELLA, SHIGELLA, CAMPYLOBACTER, OR E.COLI 0157 RECOVERED. NEGATIVE FOR SHIGA TOXINS 1&2. Impressions: Abdomen/Pelvis CT 10/01/17 10:30 IMPRESSION: 1. Given the long segment involvement of the left colon, this is most consistent with a colitis, infectious or inflammatory. While ischemic colitis is a possibility, it is not favored. 2. Mild enlargement of the appendix with some subtle surrounding inflammatory change. This may be secondary to the intra-abdominal inflammatory change, however a developing acute appendicitis is not entirely excluded. 3. Large, complicated left renal cyst. No prior exams available for comparison. If this is a new finding, urology consultation is recommended for further evaluation given the size and complexity of the cyst. Assessment & Plan - Diagnosis (1) Colitis Is this a current diagnosis for this admission?: Yes Plan: She is on Cipro and Flagyl. Will switch that to p.o. she can finish a course of treatment at home. (2) Renal cyst, left Is this a current diagnosis for this admission?: Yes Plan: She was seen in consultation by urology today, who recommended an MRI to better evaluate the cyst. That test is pending. Once we were sure that the scan does not show anything particularly worrisome, we can probably discharge her home and she can follow up with urology as an outpatient. - Time Time Spent with patient: 15-24 minutes
[2017-10-05] MEDS: METRONIDAZOLE 500 MG/NS RTU 500 MG/100 ML RTUPB IV SCH (05:42)
[2017-10-05] MEDS: NORMAL SALINE 1000 ML 1,000 ML IV PRN (05:42)
[2017-10-05] MEDS: LACTOBACILLUS ACIDOPHILUS 250 MG TAB PO SCH (09:26)
[2017-10-05] MEDS: LISINOPRIL 10 MG TABLET PO SCH (09:26)
[2017-10-05] MEDS: LEVOTHYROXINE SODIUM 0.075 MG TABLET PO SCH (09:27)
[2017-10-05] MEDS: CIPROFLOXACIN 400 MG/D5W RTU 400 MG/200 ML RTUPB IV SCH (09:27)
--- NOTE | 2017-10-05 10:33 | RADIOLOGY REPORT (SQ) ---
EXAM DESCRIPTION: MRI ABDOMEN COMBO COMPLETED DATE/TIME: 10/04/2017 4:48 pm REASON FOR STUDY: calified renal cyst, r/o tumor COMPARISON: None. TECHNIQUE: Multiplanar multisequence imaging performed without and with contrast including sagittal, axial and coronal T2, axial T1, axial gradient fat sat T1, axial, sagittal and coronal fat sat T1 po st contrast. CONTRAST TYPE AND DOSE: 20 mL Prohance. RENAL FUNCTION: GFR > 60. LIMITATIONS: Motion. FINDINGS: LIVER: Normal size. No masses. No dilated ducts. CBD normal. SPLEEN: Normal size. No focal lesions. PANCREAS: No masses. No adjacent inflammation or peripancreatic fluid collections. Pancreatic duct no t dilated. GALLBLADDER: No masses. No stones. No gallbladder wall thickening or pericholecystic fluid. ADRENAL GLANDS: No significant masses or asymmetry. RIGHT KIDNEY AND URETER: No masses. No hydronephrosis. LEFT KIDNEY AND URETER: Large septated cyst upper pole measuring approximately 9.3 x 8.8 cm. No enha ncement or solid component. AORTA AND VESSELS: Aneurysm. RETROPERITONEUM: No retroperitoneal adenopathy, hemorrhage or masses. BOWEL: No visualized masses. No inflammation. No significant dilatation. ABDOMINAL WALL AND PERITONEUM: No hernias. No free fluid. BONES: No acute or significant findings. OTHER: No other significant finding. IMPRESSION: Large septated cyst upper pole left kidney. No solid component or enhancement. TECHNICAL DOCUMENTATION: JOB ID: [id number] [employer]- All Rights Reserved Reading location - IP/workstation name: [email or web address]
[2017-10-05 11:16] VITALS: BP 129/72
[2017-10-05] MEDS ORDERED: METRONIDAZOLE 500 MG TABLET PO SCH (14:00)
--- NOTE | 2017-10-05 20:13 | PDOC DISCHARGE SUMMARY ---
General - Admit/Disc Date/PCP Admission Date/Primary Care Provider: 10/01/17 13:58 VINICIO WOMACK NP Discharge Date: 10/05/17 - Discharge Diagnosis (1) Colitis Is this a current diagnosis for this admission?: Yes Summary: Responded well to antibiotics. She will finish a course of Cipro and Flagyl at home. (2) Renal cyst, left Is this a current diagnosis for this admission?: Yes Summary: MRI results are pending. She will follow up with urology as an outpatient. - Additional Information Resuscitation Status: Full Code Discharge Diet: Other (Comments) - resume previous Discharge Activity: Activity As Tolerated Prescriptions: Ciprofloxacin HCl [Cipro 500 mg Tablet] 500 mg PO BID #14 tablet Metronidazole [Flagyl 500 mg Tablet] 500 mg PO TID #21 tablet Home Medications: Levothyroxine Sodium 75 mcg PO Q6AM 04/14/15 Lisinopril 10 mg PO DAILY 04/14/15 Ergocalciferol (Vitamin D2) [Drisdol 50,000 unit (1.25MG) Capsule] 50,000 unit PO SA@1000 10/01/17 Estrogens,Conj/Bazedoxifene [Duavee 0.45-20 mg Tablet] 1 each PO DAILY 10/01/17 Ciprofloxacin HCl [Cipro 500 mg Tablet] 500 mg PO BID #14 tablet 10/05/17 Metronidazole [Flagyl 500 mg Tablet] 500 mg PO TID #21 tablet 10/05/17 History of Present Illness History of Present Illness: GILMA FITZPATRICK is a 57 year old female with a past medical history significant for colon polyp, acoustic neuroma, hypertension and hypothyroidism reports to the ER after experiencing abdominal symptoms. About 4 weeks ago she started on weight watchers diet plan and since that time she has been feeling a little bit more constipated than usual. She reports that 2 days ago she was celebrating her anniversary with her and they went out for dinner. She ate a large rich meal with scallops, shrimp and other seafood, nothing raw. She also ate coleslaw that day. Within an hour after eating the meal she experienced significant abdominal bloating. Shortly thereafter she had a large bout of emesis and throughout her entire meal. Diarrhea started at the same time. Tuesday morning she continued with diarrhea, no further emesis. This morning diarrhea continued and she notes that it was brown mucousy and soft with bright red blood. She does not know when the bleeding started. She took some Kaopectate, ate a brat diet and took Pedialyte. After some Internet research on blood in the stool she decided to come to the ER. She continues to have loose stools. No dysuria. No fevers or chills. She has left lower quadrant aching. No severe abdominal pain. No rash. No epigastric pain. No hematemesis or melena. CT can of the abdomen pelvis shows left colon inflammation consistent with colitis, also complex left renal cyst for which urology workup is recommended. Is being admitted to the hospitalist service for treatment of colitis, likely infectious though inflammatory and ischemic not completely ruled out. sHe is hemodynamically stable. Hospital Course Hospital Course: She was put on empiric antibiotics and then transition to oral antibiotics. Her symptoms improved rather quickly. She will complete a course of Cipro and Flagyl at home. She was eating and drinking without difficulty and ambulating independently. During her workup a cyst was noted on her kidney and urology was consulted. They recommended an MRI to better characterize it. Those results are not available at this time. She will follow up with the urologist as an outpatient on the results. Her labs and examination were reassuring and she was discharged home today in good condition. Physical Exam Vital Signs: Temp Pulse Resp BP Pulse Ox 98.5 F 53 L 16 129/72 H 97 10/05/17 11:14 10/05/17 11:14 10/05/17 11:14 10/05/17 11:14 10/05/17 11:14 Intake & Output 10/04/17 10/05/17 10/06/17 06:59 06:59 06:59 Intake Total 4798 2336 Balance 4798 2336 Weight 74.2 kg 73.3 kg General appearance: PRESENT: no acute distress, cooperative Respiratory exam: PRESENT: clear to auscultation faye, unlabored. ABSENT: rales , rhonchi, tachypnea, wheezes Cardiovascular exam: PRESENT: RRR. ABSENT: systolic murmur GI/Abdominal exam: PRESENT: normal bowel sounds, soft. ABSENT: guarding, rebound, tenderness Extremities exam: ABSENT: clubbing, pedal edema Musculoskeletal exam: PRESENT: ambulatory, normal inspection. ABSENT: deformity Neurological exam: PRESENT: alert, awake, oriented to person, oriented to place , oriented to time Psychiatric exam: PRESENT: appropriate affect, normal mood Skin exam: PRESENT: dry, warm Results Laboratory Results: 10/04/17 04:22 10/04/17 04:22 Impressions: Abdomen/Pelvis CT 10/01/17 10:30 IMPRESSION: 1. Given the long segment involvement of the left colon, this is most consistent with a colitis, infectious or inflammatory. While ischemic colitis is a possibility, it is not favored. 2. Mild enlargement of the appendix with some subtle surrounding inflammatory change. This may be secondary to the intra-abdominal inflammatory change, however a developing acute appendicitis is not entirely excluded. 3. Large, complicated left renal cyst. No prior exams available for comparison. If this is a new finding, urology consultation is recommended for further evaluation given the size and complexity of the cyst. Abdomen MRI 10/04/17 00:00 IMPRESSION: Large septated cyst upper pole left kidney. No solid component or enhancement. Qualifiers - * PATIENT BEING DISCHARGED WITH ANY OF THE FOLLOWING DIAGNOSIS: No
[2017-10-05] MEDS ORDERED: CIPROFLOXACIN HCL 500 MG TABLET PO SCH (22:00)
[2017-10-06] MEDS ORDERED: LEVOTHYROXINE SODIUM 0.075 MG TABLET PO SCH (06:00)
== END 2017-10-05 11:45 | disposition home or self-care (01) | DRG 392 ==
LOC: ER 10:14 → EH 13:58 → 5 18:38
PROVIDERS: ADMIT Internal Medicine; ATTEND Internal Medicine
DX: A09 Infectious gastroenteritis and colitis, unspecified (principal); K92.1 Melena; I10 Essential (primary) hypertension; E03.9 Hypothyroidism, unspecified; N28.1 Cyst of kidney, acquired; H91.91 Unspecified hearing loss, right ear; M19.90 Unspecified osteoarthritis, unspecified site; F41.9 Anxiety disorder, unspecified; Z86.018 Personal history of other benign neoplasm; Z98.890 Other specified postprocedural states; Z87.891 Personal history of nicotine dependence; Z82.49 Family history of ischemic heart disease and other diseases of the circulatory system; Z79.899 Other long term (current) drug therapy; Z86.010 Personal history of colon polyps
CPT/HCPCS: 36415; 74177; 74183; 80048; 80053; 80307; 82272; 82962; 83690; 85025; 85027; 85610; 85730; 86850; 86900; 86901; 87040; 87045; 87205; 87493; 89055; 99285; J0744; J3490; J7030

== ENCOUNTER → 2019-07-18 | Outpatient (CLI) | payer OTHER, BC ==
[2019-07-18 16:56] LABS: ABSOLUTE BASOPHILS # (AUTO) 0.1 10^3/uL (0.0-0.2); ABSOLUTE EOSINOPHILS # (AUTO) 0.4 10^3/uL (0.0-0.6); ABSOLUTE LYMPHOCYTES (AUTO) 1.9 10^3/uL (0.5-4.7); ABSOLUTE MONOCYTES (AUTO) 0.5 10^3/uL (0.1-1.4); ABSOLUTE NEUT (AUTO) 3.8 10^3/uL (1.7-8.2); BASOPHILS % (AUTO) 0.8 % (0-2); EOSINOPHILS % (AUTO) 5.8 % (0-6); HEMATOCRIT 37.9 % (36.0-47.0); HEMOGLOBIN 13.2 g/dL (12.0-15.5); LYMPHOCYTES % (AUTO) 28.3 % (13-45); MEAN CORPUSCULAR HEMOGLOBIN 31.8 pg (27.0-33.4); MEAN CORPUSCULAR HGB CONC 34.7 g/dL (32.0-36.0); MEAN CORPUSCULAR VOLUME 92 fl (80-97); MONOCYTES % (AUTO) 8.1 % (3-13); PLATELET COUNT 312 10^3/uL (150-450); RED BLOOD COUNT 4.15 10^6/uL (3.72-5.28); RED CELL DISTRIBUTION WIDTH 12.5 % (11.5-14.0); TOTAL CELLS COUNTED % (AUTO) 100 %; WHITE BLOOD COUNT 6.6 10^3/uL (4.0-10.5)
[2019-07-18 17:27] LABS: URIC ACID 4.1 mg/dL (2.5-7.5)
[2019-07-18 17:32] LABS: C-REACTIVE PROTEIN < 5.0 mg/L (<10.0)
[2019-07-18 17:35] LABS: ERYTHROCYTE SEDIMENTATION RATE 10 mm/hr (0-30)
== END ==
LOC: OD 15:49
PROVIDERS: ATTEND Family Medicine
DX: M13.841 Other specified arthritis, right hand (principal); M13.842 Other specified arthritis, left hand
CPT/HCPCS: 36415; 82306; 84550; 85025; 85652; 86038; 86140; 86200; 86431